=== PATIENT | female | born 1940 | race Caucasian/White ===

== ENCOUNTER → 2017-01-14 | Outpatient (CLI) | payer MEDICARE, BC ==
[~2017-01-14] MED LIST: ASPI325T4 PO; ESTR1.25 PO; GABA300C PO; HYDR50TA3; LEVO112T2 PO; OXYB5TAB7 PO; POTA10CA PO; PROP60CA PO; SUMA25TA4 PO; TOLT4CAP PO; [UNRECOGNIZED DRUG - OTHER]
== END | disposition home or self-care (01) ==
LOC: CFH 10:46
PROVIDERS: ATTEND Internal Medicine
DX: R13.12 Dysphagia, oropharyngeal phase (principal)
CPT/HCPCS: 74220